=== PATIENT | male | born 1935 | race Caucasian/White ===

== ENCOUNTER 2016-08-27 20:59 | Inpatient (IN) | payer MEDICARE, OTHER ==
[2016-08-23 22:40] VITALS: O2SAT 96
[~2016-08-27] VITALS: Ht 177.8 cm; Wt 75.0 kg
[2016-08-27 21:18] VITALS: BP 176/74; PULSE 63; RESP 16; TEMP 98.2; O2SAT 100
[2016-08-27] MEDS ORDERED: SODIUM CHLORIDE 0.9% FLUSH 10 ML FLUSH IVF PRN (21:45)
--- NOTE | 2016-08-27 21:49 | RADRPT ---
EXAM DATE/TIME: 08/27/2016 21:33 [facility] COMPARISON: No previous studies available for comparison. INDICATIONS : Cough. MEDICAL HISTORY : None. SURGICAL HISTORY : None. ENCOUNTER: Initial ACUITY: 1 day PAIN SCORE: 0/10 LOCATION: Bilateral chest FINDINGS: The lungs are clear without infiltrate, nodule, or mass. There is no appreciable pleural effusion fo r technique. Heart and mediastinum are unremarkable. CONCLUSION: No acute cardiopulmonary disease. Mary Lake MD on August 27, 2016 at 21:47 Board Certified Radiologist. This report was verified electronically.
[2016-08-27 21:52] VITALS: BP 165/83; PULSE 61; RESP 16; O2SAT 100
[2016-08-27 22:03] LABS: AUTOMATED NEUTROPHIL # 6.6 TH/MM3 (1.8-7.7); BASOPHIL % 0.3 % (0.0-2.0); EOSINOPHIL # 0.1 TH/MM3 (0-0.4); HEMATOCRIT 33.7 % (39.0-51.0); HEMO FLAGS DIFF FINAL; MEAN CELL VOLUME 92.7 FL (80.0-100.0); MEAN CORPUSCULAR HEMOGLOBIN 31.1 PG (27.0-34.0); MEAN CORPUSCULAR HGB CONC 33.5 % (32.0-36.0); MONO % 4.4 % (0.0-8.0); NEUT % 82.3 % (16.0-70.0); PLATELET COUNT 216 TH/MM3 (150-450); RED BLOOD COUNT 3.63 MIL/MM3 (4.50-5.90); RED CELL DISTRIBUTION WIDTH 14.2 % (11.6-17.2)
[2016-08-27] MEDS ORDERED: ATOR10TA15 PO (22:04)
[2016-08-27] MEDS ORDERED: VITATAB11 PO (22:04)
[2016-08-27] MEDS ORDERED: NAME5TAB2 PO (22:04)
[2016-08-27] MEDS ORDERED: METF500T PO (22:04)
[2016-08-27] MEDS ORDERED: AMAN100C18 PO (22:04)
[2016-08-27] MEDS ORDERED: CITA10TA4 PO (22:04)
[2016-08-27] MEDS ORDERED: CHOL1CHW5 CHEW (22:04)
[2016-08-27] MEDS ORDERED: ARIC10TA PO (22:04)
[2016-08-27] MEDS ORDERED: DIOV160T6 PO (22:04)
[2016-08-27] MEDS ORDERED: KETOC2%T TOPICAL (22:04)
[2016-08-27] MEDS ORDERED: SERO25TA PO (22:04)
[2016-08-27] MEDS ORDERED: PLAV75TA29 PO (22:04)
[2016-08-27] MEDS ORDERED: SINE25TA PO (22:04)
[2016-08-27 22:32] LABS: ANION GAP 7 MEQ/L (5-15); BICARBONATE 27.7 MEQ/L (21.0-32.0); BLOOD UREA NITROGEN 28 MG/DL (7-18); CHLORIDE 106 MEQ/L (98-107); GLOMERULAR FILTRATION RATE 66 ML/MIN (>89); SODIUM (NA) 141 MEQ/L (136-145)
--- NOTE | 2016-08-27 23:17 | PD ---
HPI Chief Complaint: Psychiatric Symptoms Time Seen by Provider: 21:22 Travel History International Travel<30 days: No Contact w/Intl Traveler<30days: No Traveled to known affect area: No History of Present Illness HPI The patient's 81 years old. He has a history of Parkinson's dementia. He has been increasingly agitated at his [facility]. Disorientation with the [place]. He has no medical complaint aside from left knee pain where there is a Band-Aid overlying a 2 cm healing wound. HPI at bedside is somewhat limited 2/2 AMS/dementia. No fever on record. PFSH Past Medical History Medical History: Unable to Obtain High Cholesterol: Yes (PAPER MAR) Cerebrovascular Accident: Yes (TIA) Diabetes: Yes (FROM PAPER MAR) Patient Takes Glucophage: Yes (0900 08/27) Hypertension: Yes Parkinson's Disease: Yes Immunizations Current: Yes Sleep Apnea: Yes (USES CPAP<- PER PATIENT, NOTHING ON PAPER WORK) Tetanus Vaccination: Unknown Past Surgical History Surgical History: Unable to Obtain Social History Alcohol Use: No Tobacco Use: No Substance Use: No Allergies-Medications (Allergen,Severity, Reaction): Coded Allergies: No Known Allergies (Unverified , 08/27/16) Reported Meds & Prescriptions Reported Meds & Active Scripts Active Reported Sinemet (Carbidopa-Levodopa) 25-100 Mg Tab 1 Tab PO Q8HR Citalopram (Citalopram Hydrobromide) 10 Mg Tab 10 Mg PO DAILY Metformin (Metformin HCl) 500 Mg Tab 500 Mg PO BIDPC With meals Vitamin D3 (Cholecalciferol) 2,000 Unit Chew 2,000 Units CHEW DAILY Vitamin B Complex (B-Complex Vitamins) 1 Tab 1 Tab PO DAILY Seroquel (Quetiapine Fumarate) 25 Mg Tab 25 Mg PO DAILY Namenda (Memantine) 5 Mg Tab 5 Mg PO DAILY Plavix (Clopidogrel Bisulfate) 75 Mg Tab 75 Mg PO DAILY Nizoral Topical Shampoo (Ketoconazole) 2% Sham 1 Applic TOPICAL TUEFR Apply to scalp Diovan (Valsartan) 160 Mg Tab 160 Mg PO DAILY Atorvastatin (Atorvastatin Calcium) 10 Mg Tab 10 Mg PO HS Aricept (Donepezil) 10 Mg Tab 10 Mg PO HS Amantadine (Amantadine HCl) 100 Mg Cap 100 Mg PO DAILY Review of Systems ROS Limitations: Altered Mental Status Physical Exam Narrative GENERAL: 81 yo M, NAD, AOx1 SKIN: Warm and dry. HEAD: Atraumatic. Normocephalic. EYES: Pupils equal and round. No scleral icterus. No injection or drainage. ENT: No nasal bleeding or discharge. Mucous membranes pink and moist. NECK: Trachea midline. No JVD. CARDIOVASCULAR: Regular rate and rhythm. RESPIRATORY: No accessory muscle use. Clear to auscultation. Breath sounds equal bilaterally. GASTROINTESTINAL: Abdomen soft, non-tender, nondistended. Hepatic and splenic margins not palpable. MUSCULOSKELETAL: Extremities without clubbing, cyanosis, or edema. No obvious deformities. NEUROLOGICAL: Moving all extremities. CN normal. Speech normal. AOx1. PSYCHIATRIC: No apparent AH/VH. Data Data Last Documented VS Vital Signs Date Time Temp Pulse Resp B/P Pulse Ox O2 Delivery O2 Flow Rate FiO2 08/27/16 21:52 61 16 165/83 100 Room Air 08/27/16 21:18 98.2 VS reviewed Orders Basic Metabolic Panel (Bmp) (08/27/16 21:31) Complete Blood Count With Diff (08/27/16 21:31) Thyroid Stimulating Hormone (08/27/16 21:31) Urinalysis - C+S If Indicated (08/27/16 21:31) Chest, Single Ap (08/27/16 21:31) Blood Glucose (08/27/16 21:31) Ecg Monitoring (08/27/16 21:31) Iv Access Insert/Monitor (08/27/16 21:31) Oximetry (08/27/16 21:31) Sodium Chloride 0.9% Flush (Ns Flush) (08/27/16 21:45) Drug Screen, Random Urine (08/27/16 21:31) Alcohol (Ethanol) (08/27/16 21:31) Potassium, Serum (K) (08/27/16 23:40) Sodium Polysty Sulfate Liq (Kayexalate L (08/27/16 23:45) Sodium Chlorid 0.9% 500 Ml Inj (Ns 500 M (08/28/16 00:00) Escitalopram (Lexapro) (08/28/16 00:30) Carbidopa-Levodopa 25-100 Mg (Sinemet 25 (08/28/16 00:30) Citalopram (Celexa) (08/28/16 00:30) Lorazepam Inj (Ativan Inj) (08/28/16 00:45) Labs Laboratory Tests Test 08/27/16 08/27/16 08/27/16 21:48 23:13 23:54 White Blood Count 8.0 TH/MM3 Red Blood Count 3.63 MIL/MM3 Hemoglobin 11.3 GM/DL Hematocrit 33.7 % Mean Corpuscular Volume 92.7 FL Mean Corpuscular Hemoglobin 31.1 PG Mean Corpuscular Hemoglobin 33.5 % Concent Red Cell Distribution Width 14.2 % Platelet Count 216 TH/MM3 Mean Platelet Volume 8.4 FL Neutrophils (%) (Auto) 82.3 % Lymphocytes (%) (Auto) 12.0 % Monocytes (%) (Auto) 4.4 % Eosinophils (%) (Auto) 1.0 % Basophils (%) (Auto) 0.3 % Neutrophils # (Auto) 6.6 TH/MM3 Lymphocytes # (Auto) 1.0 TH/MM3 Monocytes # (Auto) 0.3 TH/MM3 Eosinophils # (Auto) 0.1 TH/MM3 Basophils # (Auto) 0.0 TH/MM3 CBC Comment DIFF FINAL Differential Comment Sodium Level 141 MEQ/L Potassium Level 6.0 MEQ/L 4.0 MEQ/L Chloride Level 106 MEQ/L Carbon Dioxide Level 27.7 MEQ/L Anion Gap 7 MEQ/L Blood Urea Nitrogen 28 MG/DL Creatinine 1.08 MG/DL Estimat Glomerular Filtration 66 ML/MIN Rate Random Glucose 95 MG/DL Calcium Level 8.8 MG/DL Thyroid Stimulating Hormone 1.270 uIU/ML 3rd Gen Ethyl Alcohol Level LESS THAN 3 MG/DL Urine Color YELLOW Urine Turbidity CLEAR Urine pH 6.0 Urine Specific [place] 1.024 Urine Protein TRACE mg/dL Urine Glucose (UA) NEG mg/dL Urine Ketones 10 mg/dL Urine Occult Blood NEG Urine Nitrite NEG Urine Bilirubin NEG Urine Urobilinogen 4.0 MG/DL Urine Leukocyte Esterase NEG Urine RBC 1 /hpf Urine WBC 1 /hpf Urine Squamous Epithelial <1 /hpf Cells Urine Mucus FEW /lpf Microscopic Urinalysis Comment CATH-CULT NOT IND Urine Opiates Screen NEG Urine Barbiturates Screen NEG Urine Amphetamines Screen NEG Urine Benzodiazepines Screen NEG Urine Cocaine Screen NEG Urine Cannabinoids Screen NEG MDM Medical Decision Making Medical Screen Exam Complete: Yes Emergency Medical Condition: Yes Medical Record Reviewed: Yes Differential Diagnosis Altered mental status/psychosis due to infection/environmental exposure/ metabolic abnormality, polypharmacy, alcohol abuse/intoxication, illicit or prescribed drug abuse, malingering/secondary gain, non-organic psychiatric disease Narrative Course CBC & BMP Diagram 08/27/16 21:48 08/27/16 23:54 U drug: edwards-negative UA: negative EtOH < 3 The history of present illness, ROS, physical exam, review of records and medical workup performed for today's visit have reasonably safely excluded organic etiologies for the patient's presenting complaint. We will continue to monitor the patient carefully in the ER until time of evaluation by the psychiatry service. We are available for any additional medical assistance if needed during the patient's ER course. Disposition per discretion of psychiatry is appreciated. Diagnosis Primary Impression: Agitation Momo Fox MD Aug 27, 2016 23:17
[2016-08-27 23:30] LABS: BLOOD, URINE NEG (NEG); COMMENT (UR) CATH-CULT NOT IND; CULTURE IF INDICATED CATH CULTURE NOT IND; GLUCOSE,URINE NEG (NEG); KETONE, URINE 10 mg/dL (NEG); MUCUS URINE FEW /lpf (OCC); NITRITE,URINE NEG (NEG); SQUAMOUS EPITHELIAL CELL URINE <1 /hpf (0-5); URINE COLOR YELLOW (YELLW/STRAW)
[2016-08-27 23:36] LABS: AMPHETAMINE, URINE NEG (NEG); BARBITURATES, URINE NEG (NEG); COCAINE, URINE NEG (NEG)
[2016-08-27] MEDS ORDERED: SODIUM POLYSTYRENE SULFONATE SUSP 15 GM/60 ML CUP PO ONE (23:45)
[2016-08-28] MEDS ORDERED: SODIUM CHLORID 0.9% 500 ML INJ 500 ML IV ONE
[2016-08-28] MEDS ORDERED: ESCITALOPRAM OXALATE 10 MG TAB PO ONE (00:30)
[2016-08-28] MEDS ORDERED: CITALOPRAM HYDROBROMIDE 20 MG TAB PO ONE (00:30)
[2016-08-28] MEDS: CARBIDOPA/LEVODOPA 25 MG/100 MG TAB PO SCH ×3 (00:37→21:31)
[2016-08-28] MEDS ORDERED: LORazepam 2 MG/ML VIAL IV PUSH ONE (00:45)
[2016-08-28 01:25] VITALS: BP 161/74; PULSE 60; RESP 16; O2SAT 100
[2016-08-28 04:43] VITALS: BP 148/81; PULSE 72; RESP 16; O2SAT 100
[2016-08-28] MEDS ORDERED: ALUMINUM/MAGNESIUM/SIMETH 30 ML CUP PO PRN (11:00)
[2016-08-28] MEDS ORDERED: LORazepam 1 MG TAB PO PRN (11:00)
[2016-08-28] MEDS ORDERED: LORazepam 2 MG/ML VIAL IM PRN ×2 (11:00)
[2016-08-28] MEDS ORDERED: LORazepam 0.5 MG TAB PO PRN (11:00)
[2016-08-28] MEDS ORDERED: ACETAMINOPHEN 325 MG TAB PO PRN (11:00)
[2016-08-28] MEDS ORDERED: MAGNESIUM HYDROXIDE SUSP 30 ML CUP PO PRN (11:00)
[2016-08-28] MEDS ORDERED: traZODone HCL 50 MG TAB PO PRN (11:00)
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
[2016-08-28] MEDS: VALSARTAN 160 MG TAB PO SCH (12:00)
[2016-08-28 12:33] VITALS: BP 150/73; PULSE 63; RESP 16; TEMP 97.1; O2SAT 94
[2016-08-28] MEDS: CLOPIDOGREL 75 MG TAB PO SCH (15:00)
[2016-08-28] MEDS: metFORMIN HCL 500 MG TAB PO SCH (18:00)
[2016-08-28 18:36] VITALS: BP 164/79; PULSE 80; RESP 17; TEMP 98.4; O2SAT 96
[2016-08-28] MEDS ORDERED: ATORVASTATIN 10 MG TAB PO SCH (21:00)
[2016-08-29] MEDS: CARBIDOPA/LEVODOPA 25 MG/100 MG TAB PO SCH ×2 (00:30→05:55)
[2016-08-29 06:17] VITALS: BP 165/88; PULSE 75; RESP 16; TEMP 97.9; O2SAT 95
[2016-08-29] MEDS: VALSARTAN 160 MG TAB PO SCH (08:52)
[2016-08-29] MEDS: VITAMIN B COMPLEX/VIT C TAB PO SCH (08:53)
[2016-08-29] MEDS: CLOPIDOGREL 75 MG TAB PO SCH (08:53)
[2016-08-29] MEDS: CHOLECALCIFEROL (VIT D3) 1000 UNIT TAB PO SCH (08:53)
[2016-08-29] MEDS: metFORMIN HCL 500 MG TAB PO SCH ×2 (08:53→18:00)
[2016-08-29] MEDS: NICOTINE 21 MG/24 HR PATCH T-DERMAL SCH (09:00)
[2016-08-29] MEDS ORDERED: MEMANTINE HCL 5 MG TAB PO SCH (09:00)
[2016-08-29 09:30] LABS: AUTOMATED NEUTROPHIL # 7.5 TH/MM3 (1.8-7.7); BASOPHIL % 0.2 % (0.0-2.0); EOSINOPHIL # 0.1 TH/MM3 (0-0.4); EOSINOPHIL % 1.2 % (0.0-4.0); HEMATOCRIT 36.4 % (39.0-51.0); HEMO FLAGS DIFF FINAL; LYMPH % 6.9 % (9.0-44.0); LYMPHOCYTE # 0.6 TH/MM3 (1.0-4.8); MEAN CELL VOLUME 93.1 FL (80.0-100.0); MEAN CORPUSCULAR HEMOGLOBIN 30.8 PG (27.0-34.0); MONO % 3.7 % (0.0-8.0); PLATELET COUNT 211 TH/MM3 (150-450); RED BLOOD COUNT 3.91 MIL/MM3 (4.50-5.90); RED CELL DISTRIBUTION WIDTH 14.1 % (11.6-17.2); WHITE BLOOD COUNT 8.5 TH/MM3 (4.0-11.0)
[2016-08-29 10:45] LABS: ALKALINE PHOSPHATASE 70 U/L (45-117); ALT (GPT) 12 U/L (12-78); ANION GAP 8 MEQ/L (5-15); AST (GOT) 30 U/L (15-37); BLOOD UREA NITROGEN 13 MG/DL (7-18); CHLORIDE 105 MEQ/L (98-107); GLOMERULAR FILTRATION RATE 97 ML/MIN (>89); HDL CHOLESTEROL 81.2 MG/DL (40.0-60.0); LDL CHOLESTEROL 58 MG/DL (0-99); POTASSIUM 3.9 MEQ/L (3.5-5.1); SODIUM (NA) 142 MEQ/L (136-145); TOTAL BILIRUBIN ADULT 1.4 MG/DL (0.2-1.0)
[2016-08-29 11:30] VITALS: BP 146/67; PULSE 8; RESP 1; TEMP 99.1
--- NOTE | 2016-08-29 11:40 | HHI.PYPN ---
Subjective Remarks This is a request for second opinion. Patient was seen, admission note reviewed. Patient is here for psychosis and disorganized thinking. Today he is alert and oriented 1. Largely nonsensical when answering other questions. He is diagnosed with Parkinson's dementia and is having episodes of generalized jerking that last for 3-5 seconds. He is conscious during these events. Per nursing he was seen by neurology today with no medication changes. Objective Alert: Yes [place]: Person Mood: Anxious Affect: Blunted Memory Intact: Immediate (impaired) Hallucinations: Other (denies) Delusions: No Delusion Type: Paranoid Suicidal: Ideation (denies) Homicidal: Ideation (denies) Insight/Judgment Poor Labs Test 08/29/16 08:18 White Blood Count 8.5 TH/MM3 Red Blood Count 3.91 MIL/MM3 Hemoglobin 12.0 GM/DL Hematocrit 36.4 % Mean Corpuscular Volume 93.1 FL Mean Corpuscular Hemoglobin 30.8 PG Mean Corpuscular Hemoglobin 33.0 % Concent Red Cell Distribution Width 14.1 % Platelet Count 211 TH/MM3 Mean Platelet Volume 8.0 FL Neutrophils (%) (Auto) 88.0 % Lymphocytes (%) (Auto) 6.9 % Monocytes (%) (Auto) 3.7 % Eosinophils (%) (Auto) 1.2 % Basophils (%) (Auto) 0.2 % Neutrophils # (Auto) 7.5 TH/MM3 Lymphocytes # (Auto) 0.6 TH/MM3 Monocytes # (Auto) 0.3 TH/MM3 Eosinophils # (Auto) 0.1 TH/MM3 Basophils # (Auto) 0.0 TH/MM3 CBC Comment DIFF FINAL Differential Comment Sodium Level 142 MEQ/L Potassium Level 3.9 MEQ/L Chloride Level 105 MEQ/L Carbon Dioxide Level 29.0 MEQ/L Anion Gap 8 MEQ/L Blood Urea Nitrogen 13 MG/DL Creatinine 0.77 MG/DL Estimat Glomerular Filtration 97 ML/MIN Rate Random Glucose 111 MG/DL Calcium Level 9.0 MG/DL Total Bilirubin 1.4 MG/DL Aspartate Amino Transf 30 U/L (AST/SGOT) Alanine Aminotransferase 12 U/L (ALT/SGPT) Alkaline Phosphatase 70 U/L Total Protein 7.0 GM/DL Albumin 3.7 GM/DL Triglycerides Level 56 MG/DL Cholesterol Level 150 MG/DL LDL Cholesterol 58 MG/DL HDL Cholesterol 81.2 MG/DL Cholesterol/HDL Ratio 1.84 RATIO Vitamin B12 Level 570 PG/ML 25-Hydroxy Vitamin D Total 25.5 ng/ML Thyroid Stimulating Hormone 0.846 uIU/ML 3rd Gen Vitals/IOs Vital Signs Date Time Temp Pulse Resp B/P Pulse Ox O2 Delivery O2 Flow Rate FiO2 08/29/16 06:17 97.9 75 16 165/88 95 08/28/16 07:30 Room Air Assessment & Plan Problem List: (1) 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 Neurologist will be called now for further input. I agree with second opinion to continue petition. Criteria include psychosis and disorganized behavior Justification for Cont. Inpt. Patient will decompensate in a less restrictive setting Derek Alcaraz DO Aug 29, 2016 11:40
[2016-08-29] MEDS ORDERED: LORazepam 2 MG/ML VIAL IM ONE (12:30)
--- NOTE | 2016-08-29 12:30 | MB ---
cc: ZAYDA FLORES M.D. DATE OF CONSULTATION: 08/29/2016 REASON FOR CONSULTATION: Neurological consultation He is an 81-year-old being evaluated for confusion, agitation and Parkinson's / dementia. The patient was admitted 2 days ago. He was brought to the hospital because of aggressive behavior, disorientation and he lives in the nursing facility. There is apparent diagnosis of Parkinson's dementia. MEDICATIONS His medications were reported to be a 1. Sinemet 25 - 100 every 8 hours. 2. Citalopram 3. Metformin. 4. Vitamins 5. Seroquel 25 mg a day. 6. Namenda 5 mg a day. 7. Plavix. 8. Diovan. 9. Atorvastatin 10. donepezil 10 mg a day 11. amantadine 100 mg a day. REVIEW OF SYSTEMS There is indication that there has been some hallucinations aggressiveness and he was brought to the hospital. I do not have information on his outpatient neurologist. The patient admits a stroke in the past but unable to give me details. He is unable to provide much information. PHYSICAL EXAMINATION: The exam shows the patient to be awake reasonably alert and he was pleasant, cooperative, partially oriented. He knows his name and answered 72 instead of 81 the year. He seemed to have some insight that he is in the health related facility and seems to know he lives in a senior living but could not provide the name. There is an ability to follow simple commands but the more complex commands and even touching nose with his finger, was poorly followed and probably poorly comprehended. He is moving all four extremities. He was able to count fingers in both right and left visual valiente. His eyes are questionably is slightly disconjugate but the pupils were about same time same size and reactive. He did gaze in all directions. I thought the right eye was slightly deviated out word and when questioned and he admits double vision, but this is really difficult to be ascertained. There is very mild trembling and mild cleve kinesias. He is unable to walk, has been in the wheelchair. He wiggles toes and moves the lower extremities with mild to moderate increase in tone throughout. Reflexes present, 1+, but trace at the ankles and plantar responses equivocal. ANCILLARY DATA: WBC 8.0, hemoglobin 11.3, platelets 216. Sodium 141, potassium 76.0 and this is from admission, and a repeat potassium 4.0, BUN 28, creatinine 1.018. TSH 1.27. Urinalysis negative. Urine toxicology negative. ASSESSMENT Parkinson's dementia. Recent increase in confusion, and hallucinations and apparent aggressive behavior. CURRENT MEDICATIONS Seen including the 1. Sinemet 25/100 three times a day, the usual. 2. Namenda 5 mg once a day. 3. Lorazepam p.r.n. 4. Trazodone. 5. Also on Plavix 6. Diovan 7. Glucophage. ASSESSMENT AND PLAN: Neurologic aranda, I am going to obtain a CT brain, to be sure there is no acute neurologic intracranial event. Otherwise, would continue on Namenda, Donepezil, Azo, and the Sinemet. Monitor neuro psychiatric course. Thank you for asking us to assist in his care. MD SHARITA Dalton/ /9:58 AM /11:27 AM
--- NOTE | 2016-08-29 14:30 | RADRPT ---
EXAM DATE/TIME: 08/29/2016 13:31 [facility] COMPARISON: No previous studies available for comparison. INDICATIONS : Altered mental status. RADIATION DOSE: 69.17 CTDIvol (mGy) MEDICAL HISTORY : Stroke. Parkinsons. Hypertension. SURGICAL HISTORY : None. ENCOUNTER: Initial ACUITY: 1 day PAIN SCALE: Non-responsive LOCATION: Bilateral head TECHNIQUE: Multiple contiguous axial images were obtained of the head. Using automated exposure control and adj ustment of the mA and/or kV according to patient size, radiation dose was kept as low as reasonably a chievable to obtain optimal diagnostic quality images. FINDINGS: CEREBRUM: The ventricles are very prominently widened. There is moderate sulcal widening. There is decreased de nsity throughout the periventricular white matter. There is an old lacunar infarct at the left caudat e and internal capsule region. No evidence of midline shift, mass lesion, hemorrhage or acute infar ction. No extra-axial fluid collections are seen. POSTERIOR FOSSA: The cerebellum and brainstem are intact. The 4th ventricle is midline. The cerebellopontine angle i s unremarkable. EXTRACRANIAL: The visualized portion of the orbits is intact. SKULL: The calvaria is intact. No evidence of skull fracture. 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 The ventricles do appear somewhat dil ated out of proportion to the sulcal widening which can suggest normal pressure hydrocephalus. Evan Nascimento MD on August 29, 2016 at 14:26 Board Certified Radiologist. This report was verified electronically.
[2016-08-29 16:43] LABS: INDIRECT BILIRUBIN 1.2 MG/DL (0.0-0.8); TOTAL BILIRUBIN ADULT 1.4 MG/DL (0.2-1.0)
[2016-08-29] MEDS ORDERED: DEXTROSE 50% IN WATER 50 ML VIAL(D50) IV PUSH PRN (17:45)
[2016-08-29] MEDS ORDERED: GLUCAGON 1 MG/ML VIAL OTHER PRN (17:45)
--- NOTE | 2016-08-29 17:49 | PD.CONS ---
HPI Service [facility] Hospitalists Consult Requested By Psychiatric service Reason for Consult Medical management Primary Care Physician Unknown Diagnoses: History of Present Illness This is a 81-year-old patient with a past medical history significant for Parkinson's dementia who was brought into the hospital as a result of becoming increasingly agitated at his USP who was Alexander acted by his psychologist for associated aggressiveness and psychosis. Per review of the medical record, patient has developed delusional thinking and visual hallucinations. He is also following multiple times in the past month. Patient has developed some involuntary jerking. Hospitalist services were consulted for medical management. Patient seen and examined today. The time of our examination, patient briefly responsive to sternal rub only after being given 2 mg of Ativan earlier today. He is unable to provide any information and therefore his history is obtained from review of the medical record. Patient's been evaluated by neurology who has recommended CT of the brain and holding all of his medications. Review of Systems Unable to complete 10 system review due to patient's cognitive impairment Past Family Social History Allergies: Coded Allergies: No Known Allergies (Unverified , 08/27/16) Past Medical History Parkinson's dementia History TIA Diabetes mellitus Hypertension Sleep apnea Dyslipidemia Past Surgical History Unable to obtain due to patient's cognitive impairment Reported Medications Sinemet (Carbidopa-Levodopa) 25-100 Mg Tab 1 Tab PO Q8HR Citalopram (Citalopram Hydrobromide) 10 Mg Tab 10 Mg PO DAILY Metformin (Metformin HCl) 500 Mg Tab 500 Mg PO BIDPC With meals Vitamin D3 (Cholecalciferol) 2,000 Unit Chew 2,000 Units CHEW DAILY Vitamin B Complex (B-Complex Vitamins) 1 Tab 1 Tab PO DAILY Seroquel (Quetiapine Fumarate) 25 Mg Tab 25 Mg PO DAILY Namenda (Memantine) 5 Mg Tab 5 Mg PO DAILY Plavix (Clopidogrel Bisulfate) 75 Mg Tab 75 Mg PO DAILY Nizoral Topical Shampoo (Ketoconazole) 2% Sham 1 Applic TOPICAL TUEFR Apply to scalp Diovan (Valsartan) 160 Mg Tab 160 Mg PO DAILY Atorvastatin (Atorvastatin Calcium) 10 Mg Tab 10 Mg PO HS Aricept (Donepezil) 10 Mg Tab 10 Mg PO HS Amantadine (Amantadine HCl) 100 Mg Cap 100 Mg PO DAILY Active Ordered Medications Current Medications Medications (Trade) Dose Ordered Sig/Kristyn Route Start Time Stop Time Status Last Admin (NS Flush) 2 ml UNSCH PRN IVF 08/27/16 21:45 (Sinemet 25-100 Mg) 1 tab ONCE PO 08/28/16 00:30 Hold 08/29/16 00:30 (Ativan) 1 mg Q6H PRN PO 08/28/16 11:00 (Ativan Inj) 1 mg Q6H PRN IM 08/28/16 11:00 (Ativan) 0.5 mg Q12H PRN PO 08/28/16 11:00 (Ativan Inj) 0.5 mg Q12H PRN IM 08/28/16 11:00 (Tylenol) 650 mg Q4H PRN PO 08/28/16 11:00 (Milk Of Magnesia Liq) 30 ml DAILY PRN PO 08/28/16 11:00 (Mag-Al Plus Susp Liq) 30 ml Q6H PRN PO 08/28/16 11:00 (Habitrol 21 Mg Patch.24 Hr) 1 patch DAILY T-DERMAL 08/29/16 09:00 (Desyrel) 50 mg HS PRN PO 08/28/16 11:00 (Lipitor) 10 mg HS PO 08/28/16 21:00 08/28/16 21:31 (Sinemet 25-100 Mg) 1 tab Q8HR PO 08/28/16 14:00 Hold 08/29/16 05:55 (Plavix) 75 mg DAILY PO 08/28/16 12:00 08/29/16 08:53 (Namenda) 5 mg DAILY PO 08/29/16 09:00 Hold 08/29/16 08:53 (Glucophage) 500 mg BIDPC PO 08/28/16 18:00 08/29/16 08:53 (Diovan) 160 mg DAILY PO 08/28/16 12:00 08/29/16 08:52 (Allbee C) 1 tab DAILY PO 08/29/16 09:00 08/29/16 08:53 (Vitamin D3) 2,000 units DAILY PO 08/29/16 09:00 08/29/16 08:53 Family History Unable to obtain due to patient's cognitive impairment Social History Per ED note, patient does not use tobacco alcohol or illicit drugs. Physical Exam Vital Signs Vital Signs Date Time Temp Pulse Resp B/P Pulse Ox O2 Delivery O2 Flow Rate FiO2 08/29/16 11:30 99.1 8 1 146/67 08/29/16 06:17 97.9 75 16 165/88 95 08/28/16 18:36 98.4 80 17 164/79 96 Physical Exam GENERAL: This is a well-developed well-nourished elderly male. Observed to have intermittent involuntary jerking movements. Briefly responsive to sternal rub. SKIN: . Abrasions noted on both anterior knees. Cool and dry. HEAD: Atraumatic. Normocephalic. EYES: Pupils equal round and reactive. ENT: Nose without bleeding, purulent drainage or septal hematoma. Throat without erythema, tonsillar hypertrophy or exudate. Uvula midline. Airway patent. NECK: Trachea midline. No lymphadenopathy. Supple, nontender, no meningeal signs. CARDIOVASCULAR: Regular rate and rhythm without murmurs, gallops, or rubs. RESPIRATORY: Clear to auscultation. Breath sounds equal bilaterally. No wheezes , rales, or rhonchi. GASTROINTESTINAL: Abdomen soft, non-tender, nondistended. No hepato-splenomegaly , or palpable masses. No guarding. MUSCULOSKELETAL: Extremities without clubbing, cyanosis, or edema. No joint tenderness, effusion, or edema noted. No calf tenderness. NEUROLOGICAL: Sedated. Able to move all 4 extremities. Laboratory Laboratory Tests Test 08/29/16 08:18 White Blood Count 8.5 Red Blood Count 3.91 Hemoglobin 12.0 Hematocrit 36.4 Mean Corpuscular Volume 93.1 Mean Corpuscular Hemoglobin 30.8 Mean Corpuscular Hemoglobin 33.0 Concent Red Cell Distribution Width 14.1 Platelet Count 211 Mean Platelet Volume 8.0 Neutrophils (%) (Auto) 88.0 Lymphocytes (%) (Auto) 6.9 Monocytes (%) (Auto) 3.7 Eosinophils (%) (Auto) 1.2 Basophils (%) (Auto) 0.2 Neutrophils # (Auto) 7.5 Lymphocytes # (Auto) 0.6 Monocytes # (Auto) 0.3 Eosinophils # (Auto) 0.1 Basophils # (Auto) 0.0 CBC Comment DIFF FINAL Differential Comment Sodium Level 142 Potassium Level 3.9 Chloride Level 105 Carbon Dioxide Level 29.0 Anion Gap 8 Blood Urea Nitrogen 13 Creatinine 0.77 Estimat Glomerular Filtration 97 Rate Random Glucose 111 Calcium Level 9.0 Total Bilirubin 1.4 Direct Bilirubin 0.2 Indirect Bilirubin 1.2 Aspartate Amino Transf 30 (AST/SGOT) Alanine Aminotransferase 12 (ALT/SGPT) Alkaline Phosphatase 70 Total Protein 7.0 Albumin 3.7 Triglycerides Level 56 Cholesterol Level 150 LDL Cholesterol 58 HDL Cholesterol 81.2 Cholesterol/HDL Ratio 1.84 Vitamin B12 Level 570 25-Hydroxy Vitamin D Total 25.5 Thyroid Stimulating Hormone 0.846 3rd Gen Result Diagram: 08/29/1618 08/29/16 0818 Imaging Last [address] 08/29/16 0000 Signed Impressions: Service Date/Time: Monday, August 29, 2016 13:31 - CONCLUSION: Dilatation of the ventricles likely secondary to hydrocephalus. The ventricles do appear somewhat dilated out of proportion to the sulcal widening which can suggest normal pressure hydrocephalus. Evan Nascimento MD Chest X-Ray 08/27/162130 Signed Impressions: Service Date/Time: August 21:33 - CONCLUSION: No acute cardiopulmonary disease. Mary Lake MD Assessment and Plan Assessment and Plan 81-year-old patient with a past medical history significant for Parkinson's dementia who was brought into the hospital as a result of becoming increasingly agitated at his USP who was Alexander acted by his psychologist for associated aggressiveness and psychosis. Per review of the medical record, patient has developed delusional thinking and visual hallucinations. He is also following multiple times in the past month. Patient has developed some involuntary jerking. Hospitalist services were consulted for medical management. //Dementia with behavioral disturbance Management per psychiatric team //Myoclonic jerking Possibly due to Parkinson's/Lewy body dementia Neurology following - per their note, continue on Namenda, Donepezil, Azo and Sinemet CT of the head shows dilatation of the ventricles likely secondary to hydrocephalus, possibly due to normal pressure hydrocephalus. 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 Barrera on 08/29/16 at 14:24. This note was transcribed by scribe [Swetha Boucher PA-C]. I, Dr. Ian Barrera personally performed the history, physical exam, and medical decision making; and confirmed the accuracy of the information in the transcribed note. Authenticated by Dr. Ian Barrera on 08/29/16 at 23:57. Discussed Condition With Nursing staff Swetha Boucher Aug 29, 2016 17:49 Ian Barrera MD Aug 29, 2016 23:58
--- NOTE | 2016-08-29 19:16 | MG ---
cc: ZAYDA GARCIA M.D. Lab No: Date: 08/29/2016 Age: 81 Sex: M Race: REQUESTING: HISTORY: An EEG was obtained on this 81-year-old patient being evaluated for agitation, behavior change and jerking movement disorder. DESCRIPTION OF THE RECORD: The EEG is showing a mixture of low amplitude beta rhythms with some low to mid amplitude theta and also some delta activity. The legs are jerking and shaking intermittently, sometimes in a repetitive manner and there is muscle artifact but there are no paroxysmal or epileptiform discharges. This behavior is intermittently and at times more prominent. At times there is mild twitching and arm jerking and again the EEG background is basically unchanged. The patient is snoring and photic stimulation disclosed no change. INTERPRETATION: Abnormal EEG because of generalized slowing suggesting a moderately severe diffuse disturbance of cerebral function. No epileptiform features present. Frequent body jerking activity shows artifact and no paroxysmal discharges. Zayda Garcia MD [facility] /6:06 PM /7:03 PM
[2016-08-29 19:31] LABS: BLOOD, URINE NEG (NEG); COMMENT (UR) CATH-CULT NOT IND; CULTURE IF INDICATED CATH CULTURE NOT IND; GLUCOSE,URINE NEG (NEG); KETONE, URINE 10 mg/dL (NEG); MUCUS URINE FEW /lpf (OCC); NITRITE,URINE NEG (NEG); PH, URINE 7.5 (5.0-8.5); SQUAMOUS EPITHELIAL CELL URINE <1 /hpf (0-5); URINE COLOR YELLOW (YELLW/STRAW)
[2016-08-29] MEDS: INSULIN ASPART SUPPLEMENTAL SCALE SQ SCH (21:00)
[2016-08-29 21:06] LABS: THYROXINE (T4) 10.7 MCG/DL (4.5-12.1)
[2016-08-30 04:00] VITALS: BP 195/86; PULSE 72; RESP 20; TEMP 98.4; O2SAT 95
[2016-08-30] MEDS ORDERED: ENALAPRILAT 2.5 MG/2 ML VIAL IV PUSH ONE (04:30)
[2016-08-30] MEDS: INSULIN ASPART SUPPLEMENTAL SCALE SQ SCH ×4 (06:03→20:33)
--- NOTE | 2016-08-30 08:41 | HHI.PR ---
Review/Management Daily Summary 08/30 he is responding tostim, follows commands, moves limbs on request lower lip injuty mild myoclonus noted today eeg seen ct seen met encep with myoclonus avoid all backshoe person meds, agrressive hydration, nutrition and comfort/supportive care consider NPH eval/tx later on Subjective Subjective Comments per RN much improved mov dx Active Medications Current Medications Medications (Trade) Dose Ordered Sig/Kristyn Route Start Time Stop Time Status Last Admin (NS Flush) 2 ml UNSCH PRN IVF 08/27/16 21:45 (Sinemet 25-100 Mg) 1 tab ONCE PO 08/28/16 00:30 Hold 08/29/16 00:30 (Ativan) 1 mg Q6H PRN PO 08/28/16 11:00 (Ativan Inj) 1 mg Q6H PRN IM 08/28/16 11:00 08/29/16 19:32 (Ativan) 0.5 mg Q12H PRN PO 08/28/16 11:00 (Ativan Inj) 0.5 mg Q12H PRN IM 08/28/16 11:00 (Tylenol) 650 mg Q4H PRN PO 08/28/16 11:00 (Milk Of Magnesia Liq) 30 ml DAILY PRN PO 08/28/16 11:00 (Mag-Al Plus Susp Liq) 30 ml Q6H PRN PO 08/28/16 11:00 (Habitrol 21 Mg Patch.24 Hr) 1 patch DAILY T-DERMAL 08/29/16 09:00 (Desyrel) 50 mg HS PRN PO 08/28/16 11:00 (Lipitor) 10 mg HS PO 08/28/16 21:00 Hold 08/28/16 21:31 (Sinemet 25-100 Mg) 1 tab Q8HR PO 08/28/16 14:00 Hold 08/29/16 05:55 (Plavix) 75 mg DAILY PO 08/28/16 12:00 08/29/16 08:53 (Namenda) 5 mg DAILY PO 08/29/16 09:00 Hold 08/29/16 08:53 (Glucophage) 500 mg BIDPC PO 08/28/16 18:00 08/29/16 08:53 (Diovan) 160 mg DAILY PO 08/28/16 12:00 08/29/16 08:52 (Allbee C) 1 tab DAILY PO 08/29/16 09:00 08/29/16 08:53 (Vitamin D3) 2,000 units DAILY PO 08/29/16 09:00 08/29/16 08:53 (D50w (Vial) Inj) 25 ml UNSCH PRN IV PUSH 08/29/16 17:45 (Glucagon Inj) 1 mg UNSCH PRN OTHER 08/29/16 17:45 Allergies Allergies Coded Allergies No Known Allergies (Unverified08/27/16) Exam I&O / VS 08/29/16 08/29/16 08/30/16 15:00 23:00 07:00 Intake Total 480 ml Balance 480 ml Intake Oral 480 ml Vital Signs Date Time Temp Pulse Resp B/P Pulse Ox O2 Delivery O2 Flow Rate FiO2 08/30/16 04:00 98.4 72 20 195/86 95 08/29/16 11:30 99.1 8 1 146/67 Objective Radiology Results Last [address] 08/29/16 0000 Signed Impressions: Service Date/Time: Monday, August 29, 2016 13:31 - CONCLUSION: Dilatation of the ventricles likely secondary to hydrocephalus. The ventricles do appear somewhat dilated out of proportion to the sulcal widening which can suggest normal pressure hydrocephalus. Evan Nascimento MD Micro and Labs Laboratory Tests Test 08/29/16 08/29/16 17:55 20:14 Urine Color YELLOW Urine Turbidity CLEAR Urine pH 7.5 Urine Specific [place] 1.014 Urine Protein NEG Urine Glucose (UA) NEG Urine Ketones 10 Urine Occult Blood NEG Urine Nitrite NEG Urine Bilirubin NEG Urine Urobilinogen 2.0 Urine Leukocyte Esterase NEG Urine RBC 2 Urine WBC 5 Urine Squamous Epithelial <1 Cells Urine Mucus FEW Microscopic Urinalysis Comment CATH-CULT NOT IND Ammonia 11 Thyroxine (T4) 10.7 Thyroid Stimulating Hormone 1.420 3rd Gen Maynor Garcia MD Aug 30, 2016 08:41
[2016-08-30 08:44] VITALS: BP 174/93; PULSE 63; RESP 16; TEMP 98.1; O2SAT 96
[2016-08-30] MEDS: NICOTINE 21 MG/24 HR PATCH T-DERMAL SCH (08:45)
[2016-08-30] MEDS: VITAMIN B COMPLEX/VIT C TAB PO SCH (09:00)
[2016-08-30] MEDS: VALSARTAN 160 MG TAB PO SCH (09:00)
[2016-08-30] MEDS: CHOLECALCIFEROL (VIT D3) 1000 UNIT TAB PO SCH (09:00)
[2016-08-30] MEDS: metFORMIN HCL 500 MG TAB PO SCH (09:00)
[2016-08-30] MEDS: CLOPIDOGREL 75 MG TAB PO SCH (09:00)
--- NOTE | 2016-08-30 09:59 | HHI.PR ---
Subjective Remarks Follow-up on patient with Parkinson's dementia, hypertension, diabetes and myoclonus. Patient seen and examined today. Patient's myoclonic jerking has improved significantly he still does some some mild symptoms. He is sedated after being given 1mg of Ativan last night. He is arousable and will answer some questions and follow commands. He has a new injury to his bottom lip with surrounding ecchymosis. He denies any complaints of pain. Denies any shortness of breath, chest pain or abdominal pain. Discussed with the nursing staff, CPAP machine was never brought up. Objective Vitals Vital Signs Date Time Temp Pulse Resp B/P Pulse Ox O2 Delivery O2 Flow Rate FiO2 08/30/16 08:44 98.1 63 16 174/93 96 08/30/16 04:00 98.4 72 20 195/86 95 08/29/16 11:30 99.1 8 1 146/67 I/O 08/29/16 08/29/16 08/29/16 08/30/16 08/30/16 08/30/16 07:00 15:00 23:00 07:00 15:00 23:00 Intake Total 100 ml 480 ml Balance 100 ml 480 ml Intake Oral 100 ml 480 ml # Voids 1 # Bowel Movements 0 Result Diagram: 08/29/1681708/29/16817 Objective Remarks GENERAL: This is a well-developed well-nourished elderly male. Sedated but arousable. Able to answer some questions. SKIN: . Abrasions noted on both anterior knees. Patient appears to bit his lower lip with evidence of bleeding and ecchymosis beneath the lower lip. Cool and dry. HEAD: Atraumatic. Normocephalic. CARDIOVASCULAR: Regular rate and rhythm without murmurs, gallops, or rubs. RESPIRATORY: Clear to auscultation. Breath sounds equal bilaterally. No wheezes , rales, or rhonchi. GASTROINTESTINAL: Abdomen soft, non-tender, nondistended. No hepato-splenomegaly , or palpable masses. No guarding. MUSCULOSKELETAL: Extremities without clubbing, cyanosis, or edema. No joint tenderness, effusion, or edema noted. No calf tenderness. NEUROLOGICAL: Sedated. Able to move all 4 extremities. Able to follow commands. Medications and IVs Current Medications Medications (Trade) Dose Ordered Sig/Kristyn Route Start Time Stop Time Status Last Admin (NS Flush) 2 ml UNSCH PRN IVF 08/27/16 21:45 (Sinemet 25-100 Mg) 1 tab ONCE PO 08/28/16 00:30 Hold 08/29/16 00:30 (Ativan) 1 mg Q6H PRN PO 08/28/16 11:00 (Ativan Inj) 1 mg Q6H PRN IM 08/28/16 11:00 08/29/16 19:32 (Ativan) 0.5 mg Q12H PRN PO 08/28/16 11:00 (Ativan Inj) 0.5 mg Q12H PRN IM 08/28/16 11:00 (Tylenol) 650 mg Q4H PRN PO 08/28/16 11:00 (Milk Of Magnesia Liq) 30 ml DAILY PRN PO 08/28/16 11:00 (Mag-Al Plus Susp Liq) 30 ml Q6H PRN PO 08/28/16 11:00 (Habitrol 21 Mg Patch.24 Hr) 1 patch DAILY T-DERMAL 08/29/16 09:00 (Desyrel) 50 mg HS PRN PO 08/28/16 11:00 (Lipitor) 10 mg HS PO 08/28/16 21:00 Hold 08/28/16 21:31 (Sinemet 25-100 Mg) 1 tab Q8HR PO 08/28/16 14:00 Hold 08/29/16 05:55 (Plavix) 75 mg DAILY PO 08/28/16 12:00 08/29/16 08:53 (Namenda) 5 mg DAILY PO 08/29/16 09:00 Hold 08/29/16 08:53 (Glucophage) 500 mg BIDPC PO 08/28/16 18:00 Hold 08/29/16 08:53 (Diovan) 160 mg DAILY PO 08/28/16 12:00 08/29/16 08:52 (Allbee C) 1 tab DAILY PO 08/29/16 09:00 08/29/16 08:53 (Vitamin D3) 2,000 units DAILY PO 08/29/16 09:00 08/29/16 08:53 (D50w (Vial) Inj) 25 ml UNSCH PRN IV PUSH 08/29/16 17:45 (Glucagon Inj) 1 mg UNSCH PRN OTHER 08/29/16 17:45 A/P Assessment and Plan 81-year-old patient with a past medical history significant for Parkinson's dementia who was brought into the hospital as a result of becoming increasingly agitated at his INTERMEDIATE who was Alexander acted by his psychologist for associated aggressiveness and psychosis. Per review of the medical record, patient has developed delusional thinking and visual hallucinations. He is also following multiple times in the past month. Patient has developed some involuntary jerking. Hospitalist services were consulted for medical management. 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 Will add CPAP in the event his jerking is related to REM sleep - Did not bring CPAP up yesterday. Clarified CPAP respiratory order - patient with h/o NUPUR using CPAP at home. 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 Barrera and patient Swetha Boucher Aug 30, 2016 09:59
[2016-08-30] MEDS: SODIUM CHLOR 0.9% 1000 ML INJ 1,000 ML IV SCH ×2 (10:00→22:31)
[2016-08-30] MEDS: ENOXAPARIN SODIUM 40 MG/0.4 ML SYRINGE SQ SCH (12:15)
[2016-08-30 12:18] VITALS: BP 179/85; PULSE 63
[2016-08-30 15:36] VITALS: O2SAT 94
[2016-08-30 18:00] VITALS: BP 150/91; PULSE 85; RESP 20
[2016-08-30 20:35] VITALS: O2SAT 95
[2016-08-31 01:40] VITALS: O2SAT 94
[2016-08-31 05:58] VITALS: BP 141/82; PULSE 92; RESP 17; TEMP 98.5; O2SAT 92
[2016-08-31] MEDS: INSULIN ASPART SUPPLEMENTAL SCALE SQ SCH ×4 (06:30→21:00)
[2016-08-31] MEDS: NICOTINE 21 MG/24 HR PATCH T-DERMAL SCH (09:00)
[2016-08-31] MEDS: VALSARTAN 160 MG TAB PO SCH (09:00)
[2016-08-31] MEDS: VITAMIN B COMPLEX/VIT C TAB PO SCH (09:56)
[2016-08-31] MEDS: CLOPIDOGREL 75 MG TAB PO SCH (09:56)
[2016-08-31] MEDS: CHOLECALCIFEROL (VIT D3) 1000 UNIT TAB PO SCH (09:59)
--- NOTE | 2016-08-31 10:44 | HHI.PR ---
Subjective Remarks Follow-up on patient with Parkinson's dementia, hypertension, diabetes and myoclonus. Patient arouses to voice, oriented to self. Patient's myoclonus improved significantly. Denies any pain. Denies any shortness of breath or chest pain. Patient's lips ecchymotic from prior biting, denies any discomfort or pain. Discussed with RN, does state that patient had difficulty swallowing with possibility of aspiration. Patient also tolerated the CPAP machine for most of the night. Spoke with case management, placement for [facility] [place] possibly for tomorrow if medically stable. Objective Vitals Vital Signs Date Time Temp Pulse Resp B/P Pulse Ox O2 Delivery O2 Flow Rate FiO2 08/31/16 05:58 98.5 92 17 141/82 92 08/31/16 01:40 94 21 08/30/16 20:35 95 21 08/30/16 18:00 85 20 150/91 08/30/16 15:36 94 21 08/30/16 12:18 63 179/85 I/O 08/30/16 08/30/16 08/30/16 08/31/16 08/31/16 08/31/16 07:00 15:00 23:00 07:00 15:00 23:00 Intake Total 0 ml 0 ml Balance 0 ml 0 ml Intake Oral 0 ml 0 ml # Voids 2 4 Result Diagram: 08/29/16 0818 08/29/16 0818 Imaging Last Impressions Head CT 08/29/16 0000 Signed Impressions: Service Date/Time: Monday, August 29, 2016 13:31 - CONCLUSION: Dilatation of the ventricles likely secondary to hydrocephalus. The ventricles do appear somewhat dilated out of proportion to the sulcal widening which can suggest normal pressure hydrocephalus. Evan Nascimento MD Chest X-Ray 08/27/162130 Signed Impressions: Service Date/Time: August 21:33 - CONCLUSION: No acute cardiopulmonary disease. Mary Lake MD Objective Remarks GENERAL: Well-developed well-nourished elderly male. Arouses to voice. Able to answer some questions. SKIN: . Abrasions noted on both anterior knees. Lower lip ecchymosis noted with dried blood. Cool and dry. HEAD: Atraumatic. Normocephalic. CARDIOVASCULAR: Regular rate and rhythm without murmurs, gallops, or rubs. RESPIRATORY: Clear to auscultation. Breath sounds equal bilaterally. No wheezes , rales, or rhonchi. GASTROINTESTINAL: Abdomen soft, non-tender, nondistended. No hepato-splenomegaly , or palpable masses. No guarding. MUSCULOSKELETAL: Extremities without clubbing, cyanosis, or edema. No joint tenderness, effusion, or edema noted. No calf tenderness. NEUROLOGICAL: Sedated. Able to move all 4 extremities. Able to follow commands. Urinary Catheter: No Vascular Central Line Catheter: No A/P Assessment and Plan 81-year-old patient with a past medical history significant for Parkinson's dementia who was brought into the hospital as a result of becoming increasingly agitated at his NICOLE who was Alexander acted by his psychologist for associated aggressiveness and psychosis. Per review of the medical record, patient has developed delusional thinking and visual hallucinations. He is also following multiple times in the past month. Patient has developed some involuntary jerking. Hospitalist services were consulted for medical management. 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 - Patient with h/o NUPUR using CPAP at home. CPAP ordered at night, possible relation of jerking to REM sleep. - B12 level 570 Dysphagia - Speech therapy swallow evaluation ordered, appreciate input. Possible aspiration. Hypertension - BP 141/82 today. - Requested only check blood pressure when sitting - Continue with antihypertensive regimen. - IV hydralazine PRN, with parameters - Monitor BP Dyslipidemia - Continue home statin Diabetes mellitus - Metformin on hold until better oral intake - Continue accuchecks and sliding scale - A1c pending Indirect Hyperbilirubinemia -labs indicate gilbert's syndrome - benign History of TIA -Continue Plavix NUPUR -CPAP ordered at night Vitamin D deficiency -Vitamin D supplementation Anemia -Mild, stable -Recheck CBC if indicated DVT prophylaxis -Encourage ambulation -Lovenox Discussed with nursing staff, Dr. Barrera and patient Gisselle StylesP Aug 31, 2016 10:44
--- NOTE | 2016-08-31 11:03 | HHI.PR ---
Review/Management Daily Summary 08/30 he is responding tostim, follows commands, moves limbs on request lower lip injuty mild myoclonus noted today eeg seen ct seen met encep with myoclonus avoid all marker shipments meds, agrressive hydration, nutrition and comfort/supportive care consider NPH eval/tx later on 08/31 more alert and some verbal reply but minimal follows some simple commands no myoclonus continue to hold marker shipments meds hydration and nutrition discussed with staff Subjective Subjective Comments No acute events reported Active Medications Current Medications Medications (Trade) Dose Ordered Sig/Kristyn Route Start Time Stop Time Status Last Admin (NS Flush) 2 ml UNSCH PRN IVF 08/27/16 21:45 (Sinemet 25-100 Mg) 1 tab ONCE PO 08/28/16 00:30 Hold 08/29/16 00:30 (Ativan Inj) 1 mg Q6H PRN IM 08/28/16 11:00 08/29/16 19:32 (Ativan Inj) 0.5 mg Q12H PRN IM 08/28/16 11:00 08/30/16 10:50 (Tylenol) 650 mg Q4H PRN PO 08/28/16 11:00 (Milk Of Magnesia Liq) 30 ml DAILY PRN PO 08/28/16 11:00 (Mag-Al Plus Susp Liq) 30 ml Q6H PRN PO 08/28/16 11:00 (Habitrol 21 Mg Patch.24 Hr) 1 patch DAILY T-DERMAL 08/29/16 09:00 (Desyrel) 50 mg HS PRN PO 08/28/16 11:00 (Lipitor) 10 mg HS PO 08/28/16 21:00 Hold 08/28/16 21:31 (Sinemet 25-100 Mg) 1 tab Q8HR PO 08/28/16 14:00 Hold 08/29/16 05:55 (Plavix) 75 mg DAILY PO 08/28/16 12:00 08/31/16 09:56 (Namenda) 5 mg DAILY PO 08/29/16 09:00 Hold 08/29/16 08:53 (Glucophage) 500 mg BIDPC PO 08/28/16 18:00 Hold 08/29/16 08:53 (Diovan) 160 mg DAILY PO 08/28/16 12:00 08/31/16 09:00 (Allbee C) 1 tab DAILY PO 08/29/16 09:00 08/31/16 09:56 (Vitamin D3) 2,000 units DAILY PO 08/29/16 09:00 08/31/16 09:59 (D50w (Vial) Inj) 25 ml UNSCH PRN IV PUSH 08/29/16 17:45 Glucagon 1 mg 1 mg UNSCH PRN OTHER 08/29/16 17:45 (NS 1000 ml Inj) 1,000 ml @ 75 mls/hr [id number] IV 08/30/16 10:00 08/30/16 22:31 (Apresoline Inj) 10 mg Q6H PRN IV PUSH 08/30/16 09:45 (Lovenox Inj) 40 mg Q24H SQ 08/30/16 12:15 08/30/16 12:15 Allergies Allergies Coded Allergies No Known Allergies (Unverified08/27/16) Exam I&O / VS 08/30/16 08/30/16 08/31/16 15:00 23:00 07:00 Intake Total 0 ml 0 ml Balance 0 ml 0 ml Intake Oral 0 ml 0 ml # Voids 2 4 Vital Signs Date Time Temp Pulse Resp B/P Pulse Ox O2 Delivery O2 Flow Rate FiO2 08/31/16 05:58 98.5 92 17 141/82 92 08/31/16 01:40 94 21 08/30/16 20:35 95 21 08/30/16 18:00 85 20 150/91 08/30/16 15:36 94 21 08/30/16 12:18 63 179/85 Maynor Garcia MD Aug 31, 2016 11:03
[2016-08-31] MEDS: ENOXAPARIN SODIUM 40 MG/0.4 ML SYRINGE SQ SCH (13:10)
[2016-08-31] MEDS: SODIUM CHLOR 0.9% 1000 ML INJ 1,000 ML IV SCH (13:15)
[2016-08-31 13:44] LABS: HEMOGLOBIN A1b 1.9 %; HEMOGLOBIN Ao 84.9 %; HEMOGLOBIN LA1C 1.8 %; HEMOGLOBIN P3 3.9 %
--- NOTE | 2016-08-31 14:09 | HHI.PYPN ---
Subjective Remarks Pt seen and discussed with staff. Pt was lethargic this morning, but is more alert this afternoon. He ate lunch with staff assistance and engaged more with staff. He reports that he is okay and asks when "when am I getting out of here? " but quickly derails into nonsensical rambling and tires quickly. He is in soft mitten restraint due to attempting to pull out IV Objective Alert: Yes [place]: Person Mood: Calm Affect: Blunted Memory Intact: Immediate (impaired), Recent (impaired), Remote (impaired) Hallucinations: Other (does not appear to internally stimulated) Delusions: No Delusion Type: Paranoid Suicidal: Ideation (none elicited) Homicidal: Ideation (none elicted) Insight/Judgment poor Vitals/IOs Vital Signs Date Time Temp Pulse Resp B/P Pulse Ox O2 Delivery O2 Flow Rate FiO2 08/31/16 05:58 98.5 92 17 141/82 92 08/31/16 01:40 21 08/28/16 07:30 Room Air Intake and Output 08/30/16 08/30/16 08/31/16 08:00 16:00 00:00 Intake Total 0 ml Balance 0 ml Assessment & Plan Problem List: (1) 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 Estimated LOS: days Justification for Cont. Inpt. complicating medical conditions Catrachita Mercedes MD Aug 31, 2016 14:09
[2016-08-31 17:30] VITALS: BP 161/83; PULSE 95; RESP 12; O2SAT 95
[2016-09-01] VITALS (7 sets, daily range): BP systolic 175–197; BP diastolic 80–105; PULSE 88–95; RESP 20; TEMP 98.7; O2SAT 94–98
[2016-09-01] MEDS: SODIUM CHLOR 0.9% 1000 ML INJ 1,000 ML IV SCH (02:12)
[2016-09-01] MEDS: INSULIN ASPART SUPPLEMENTAL SCALE SQ SCH ×4 (07:00→21:00)
[2016-09-01] MEDS: NICOTINE 21 MG/24 HR PATCH T-DERMAL SCH (09:00)
[2016-09-01] MEDS: VALSARTAN 160 MG TAB PO SCH (09:30)
[2016-09-01] MEDS: CLOPIDOGREL 75 MG TAB PO SCH (09:30)
[2016-09-01] MEDS: CHOLECALCIFEROL (VIT D3) 1000 UNIT TAB PO SCH (09:30)
[2016-09-01] MEDS: VITAMIN B COMPLEX/VIT C TAB PO SCH (09:30)
[2016-09-01] MEDS ORDERED: BISACODYL 10 MG SUPP RECTAL ONE (11:00)
--- NOTE | 2016-09-01 12:12 | HHI.PYPN ---
Subjective Remarks Seen today for psychiatric reevaluation along with nurse in charge Dion, patient is poorly cooperative, he is a very poor historian, confused, disoriented, however he seems to be more alert and awake that yesterday. He denies suicidal and homicidal ideation, he denies visual and auditory hallucinations. The patient or aggressive behavior reported or observed. Review of Systems Other No somatic complaints Objective Alert: Yes [place]: Person Mood: Calm Affect: Blunted Memory Intact: Immediate (impaired), Recent (impaired), Remote (impaired) Hallucinations: Other (does not appear to internally stimulated) Delusions: No Delusion Type: Paranoid Suicidal: Ideation (none elicited) Homicidal: Ideation (none elicted) Insight/Judgment Poor Vitals/IOs Vital Signs Date Time Temp Pulse Resp B/P Pulse Ox O2 Delivery O2 Flow Rate FiO2 09/01/16 05:14 88 20 197/100 09/01/16 04:00 94 21 08/31/16 05:58 98.5 08/28/16 07:30 Room Air Intake and Output 08/31/16 08/31/16 09/01/16 08:00 16:00 00:00 Intake Total 0 ml 1000 ml 0 ml Balance 0 ml 1000 ml 0 ml Assessment & Plan Problem List: (1) 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 ICD Code: F02.81 Assessment & Plan Estimated LOS: days Justification for Cont. Inpt. Patient is to continue psychiatric hospitalization for stabilization and safety Deejay Torres MD Sep 01, 2016 12:11
[2016-09-01] MEDS: ENOXAPARIN SODIUM 40 MG/0.4 ML SYRINGE SQ SCH (13:10)
[2016-09-01] MEDS: DOCUSATE SODIUM 50 MG/SENNA 8.6 MG TAB PO SCH (13:10)
--- NOTE | 2016-09-01 15:01 | HHI.PR ---
Subjective Remarks Follow-up on patient with Parkinson's dementia, hypertension, diabetes and myoclonus. Patient lying in bed comfortably. Pleasantly confused. Myoclonus significantly improved. Denies any shortness of breath, chest pain or nausea/ vomiting. Spoke to RN regarding patient status, patient has not had a BM since admission, also appetite has been poor with minimal PO intake. RN did state that patient used CPAP overnight. Has been tolerating PO medications. BP elevated today, requested to recheck. Objective Vitals Vital Signs Date Time Temp Pulse Resp B/P Pulse Ox O2 Delivery O2 Flow Rate FiO2 09/01/16 05:14 88 20 197/100 09/01/16 04:00 94 21 09/01/16 00:00 94 21 08/31/16 17:30 95 12 161/83 95 I/O 08/31/16 08/31/16 08/31/16 09/01/16 09/01/16 09/01/16 07:00 15:00 23:00 07:00 15:00 23:00 Intake Total 0 ml 1000 ml 0 ml 1639 ml 1000 ml Balance 0 ml 1000 ml 0 ml 1639 ml 1000 ml Intake Oral 0 ml 0 ml IV Total 1000 ml 1639 ml 1000 ml # Voids 4 2 2 2 Result Diagram: 08/29/16 0818 08/29/16 0818 Imaging Last Impressions Head CT 08/29/16 0000 Signed Impressions: Service Date/Time: Monday, August 29, 2016 13:31 - CONCLUSION: Dilatation of the ventricles likely secondary to hydrocephalus. The ventricles do appear somewhat dilated out of proportion to the sulcal widening which can suggest normal pressure hydrocephalus. Evan Nascimento MD Chest X-Ray 08/27/162130 Signed Impressions: Service Date/Time: August 21:33 - CONCLUSION: No acute cardiopulmonary disease. Mary Lake MD Objective Remarks GENERAL: Well-developed well-nourished elderly male. Arouses to voice. Able to answer some questions. SKIN: . Abrasions noted on both anterior knees. Lower lip ecchymosis noted with dried blood. Cool and dry. HEAD: Atraumatic. Normocephalic. CARDIOVASCULAR: Regular rate and rhythm without murmurs, gallops, or rubs. RESPIRATORY: Clear to auscultation. Breath sounds equal bilaterally. No wheezes , rales, or rhonchi. GASTROINTESTINAL: Abdomen soft, non-tender, nondistended. No hepato-splenomegaly , or palpable masses. No guarding. MUSCULOSKELETAL: Extremities without clubbing, cyanosis, or edema. No joint tenderness, effusion, or edema noted. No calf tenderness. NEUROLOGICAL: Sedated. Able to move all 4 extremities. Able to follow commands. A/P Assessment and Plan 81-year-old patient with a past medical history significant for Parkinson's dementia who was brought into the hospital as a result of becoming increasingly agitated at his NICOLE who was Alexander acted by his psychologist for associated aggressiveness and psychosis. Per review of the medical record, patient has developed delusional thinking and visual hallucinations. He is also following multiple times in the past month. Patient has developed some involuntary jerking. Hospitalist services were consulted for medical management. Dementia with behavioral disturbance - Management per psychiatric team Myoclonic jerking - Significantly improved today. - Possibly due to Parkinson's/Lewy body dementia - Neurology following, order to hold all KNIFEMAN medications. 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 - Patient with h/o NUPUR using CPAP at home. CPAP ordered at night, possible relation of jerking to REM sleep. - B12 level 570 Constipation - No BM documented since admission. - Dulcolax suppository x 1. Scheduled docusate/senna. Milk of magnesium PRN. Dysphagia - Speech therapy swallow evaluation performed yesterday, pureed honey thickened liquids. - Encourage PO intake. Hypertension - BP elevated - Requested only check blood pressure when sitting - Continue with antihypertensive regimen. - IV hydralazine PRN, with parameters - Monitor BP Dyslipidemia - Continue home statin Diabetes mellitus - Metformin on hold. Blood sugars controlled. - Continue accuchecks and sliding scale - A1c 5.9. 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 Vitamin D deficiency -Vitamin D supplementation Anemia -Mild, stable -Recheck CBC if indicated DVT prophylaxis -Encourage ambulation -Lovenox Discussed with nursing staff, Dr. Barrera and patient Gisselle Styles DANISH Sep 01, 2016 15:01
[2016-09-01] MEDS: hydrALAZINE HCL 20 MG/ML VIAL IV PUSH PRN (15:19)
[2016-09-01 21:11] LABS: BICARBONATE 24.4 MEQ/L (21.0-32.0); POTASSIUM 3.8 MEQ/L (3.5-5.1)
[2016-09-02] MEDS: hydrALAZINE HCL 20 MG/ML VIAL IV PUSH PRN (05:08)
[2016-09-02 05:36] VITALS: BP 148/69; PULSE 87; RESP 17; TEMP 98
[2016-09-02] MEDS: INSULIN ASPART SUPPLEMENTAL SCALE SQ SCH ×2 (06:32→11:00)
[2016-09-02] MEDS: VALSARTAN 160 MG TAB PO SCH (08:12)
[2016-09-02] MEDS: CLOPIDOGREL 75 MG TAB PO SCH (08:12)
[2016-09-02] MEDS: VITAMIN B COMPLEX/VIT C TAB PO SCH (08:13)
[2016-09-02] MEDS: CHOLECALCIFEROL (VIT D3) 1000 UNIT TAB PO SCH (08:13)
[2016-09-02] MEDS: DOCUSATE SODIUM 50 MG/SENNA 8.6 MG TAB PO SCH (08:13)
[2016-09-02] MEDS: NICOTINE 21 MG/24 HR PATCH T-DERMAL SCH (09:00)
[2016-09-02] MEDS ORDERED: TRAZ50TA12 PO (09:08)
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
--- NOTE | 2016-09-02 10:05 | HHI.PR ---
Subjective Remarks Follow-up on patient with Parkinson's dementia, hypertension, diabetes and myoclonus. Patient seen and examined today with Dr. Palmer. Speech therapy at bedside, supposedly patient had a difficult time swallowing during evaluation, modified barium swallow ordered and performed, with recommendations for pureed honey thickened liquids. Patient is alert today. No new complaints. Plan to discharge to [facility] today. Objective Vitals Vital Signs Date Time Temp Pulse Resp B/P Pulse Ox O2 Delivery O2 Flow Rate FiO2 09/02/16 05:36 98.0 87 17 148/69 09/02/16 02:15 21.0 09/02/16 01:25 Full Face Mask 21.0 09/01/16 22:40 Full Face Mask 21.0 09/01/16 18:00 98.7 95 185/80 98 09/01/16 14:59 175/105 I/O 09/01/16 09/01/16 09/01/16 09/02/16 09/02/16 09/02/16 06:59 14:59 22:59 06:59 14:59 22:59 Intake Total 1639 ml 1000 ml 420 ml 40 ml 90 ml Output Total 1 ml Balance 1639 ml 1000 ml 419 ml 40 ml 90 ml Intake Oral 420 ml 40 ml 90 ml IV Total 1639 ml 1000 ml Output Stool Total 1 ml # Voids 2 2 4 # Bowel Movements 1 Result Diagram: 08/29/16 0818 09/01/16 1949 Imaging Last Impressions Head CT 08/29/16 0000 Signed Impressions: Service Date/Time: Monday, August 29, 2016 13:31 - CONCLUSION: Dilatation of the ventricles likely secondary to hydrocephalus. The ventricles do appear somewhat dilated out of proportion to the sulcal widening which can suggest normal pressure hydrocephalus. Evan Nascimento MD Chest X-Ray 08/27/162130 Signed Impressions: Service Date/Time: August 21:33 - CONCLUSION: No acute cardiopulmonary disease. Mary Lake MD Objective Remarks GENERAL: Well-developed well-nourished elderly male. Arouses to voice. Able to answer some questions. SKIN: . Abrasions noted on both anterior knees. Lower lip ecchymosis noted with dried blood. Cool and dry. HEAD: Atraumatic. Normocephalic. CARDIOVASCULAR: Regular rate and rhythm without murmurs, gallops, or rubs. RESPIRATORY: Clear to auscultation. Breath sounds equal bilaterally. No wheezes , rales, or rhonchi. GASTROINTESTINAL: Abdomen soft, non-tender, nondistended. No hepato-splenomegaly , or palpable masses. No guarding. MUSCULOSKELETAL: Extremities without clubbing, cyanosis, or edema. No joint tenderness, effusion, or edema noted. No calf tenderness. NEUROLOGICAL: Sedated. Able to move all 4 extremities. Able to follow commands. Urinary Catheter: No Vascular Central Line Catheter: No A/P Assessment and Plan 81-year-old patient with a past medical history significant for Parkinson's dementia who was brought into the hospital as a result of becoming increasingly agitated at his NICOLE who was Alexander acted by his psychologist for associated aggressiveness and psychosis. Per review of the medical record, patient has developed delusional thinking and visual hallucinations. He is also following multiple times in the past month. Patient has developed some involuntary jerking. Hospitalist services were consulted for medical management. Dementia with behavioral disturbance - Management per psychiatric team Myoclonic jerking, improved. - Possibly due to Parkinson's/Lewy body dementia - CT head report reviewed, dilatation of the ventricles likely secondary to hydrocephalus, possibly due to normal pressure hydrocephalus. - Patient with h/o NUPUR using CPAP at home. CPAP ordered at night, possible relation of jerking to REM sleep. - B12 level 570 Constipation - Dulcolax suppository x 1 yesterday 09/01. Scheduled docusate/senna. Milk of magnesium PRN. - BM documented for yesterday 09/01. Dysphagia - Speech therapy performed modified barium swallow, continue with prior recommendations for pureed honey thickened liquids. - Encourage PO intake. Hypertension - BP more controlled. May be related to hold on Sinemet, although per neurology note he desires Sinemet to be held. Recommending follow up in [address] Garcia outpatient. - Continue with antihypertensive regimen. - Monitor BP Dyslipidemia - Continue home statin Diabetes mellitus - Blood sugars controlled. - Continue accuchecks and sliding scale - A1c 5.9. 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 Vitamin D deficiency -Vitamin D supplementation Anemia -Mild, stable DVT prophylaxis -Encourage ambulation -Lovenox Discussed with nursing staff, Dr. Palmer and patient Written by Gisselle Styles, acting as scribe for Dr. Palmer on 09/02/16 at 1130. This note was transcribed by scribe [DANISH Pendleton]. I, Dr. Cleo Palmer personally performed the history, physical exam, and medical decision making; and confirmed the accuracy of the information in the transcribed note. Authenticated by Dr. Cleo Palmer on 09/02/16 at 1135. Discharge Planning Discharge today to [facility]. Gisselle Styles Sep 02, 2016 10:05 Cleo Palmer MD Sep 02, 2016 16:54
--- NOTE | 2016-09-02 10:48 | HHI.PR ---
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 hydration and nutrition discussed with staff 09/02 he is the most alert i have ever seen mumbles some words rarely follows simple commands mittens gen weakness would continue to hold 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 meds such as sinemet, namenda, antipsychotics ok to go to rehab care Subjective Subjective Comments No acute events reported No headache No chest pain No dyspnea Active Medications Current Medications Medications (Trade) Dose Ordered Sig/Kristyn Route Start Time Stop Time Status Last Admin (NS Flush) 2 ml UNSCH PRN IVF 08/27/16 21:45 (Sinemet 25-100 Mg) 1 tab ONCE PO 08/28/16 00:30 08/29/16 00:30 (Ativan Inj) 1 mg Q6H PRN IM 08/28/16 11:00 08/29/16 19:32 (Ativan Inj) 0.5 mg Q12H PRN IM 08/28/16 11:00 08/30/16 10:50 (Tylenol) 650 mg Q4H PRN PO 08/28/16 11:00 (Milk Of Magnesia Liq) 30 ml DAILY PRN PO 08/28/16 11:00 (Mag-Al Plus Susp Liq) 30 ml Q6H PRN PO 08/28/16 11:00 (Habitrol 21 Mg Patch.24 Hr) 1 patch DAILY T-DERMAL 08/29/16 09:00 (Desyrel) 50 mg HS PRN PO 08/28/16 11:00 (Lipitor) 10 mg HS PO 08/28/16 21:00 Hold 08/28/16 21:31 (Sinemet 25-100 Mg) 1 tab Q8HR PO 08/28/16 14:00 08/29/16 05:55 (Plavix) 75 mg DAILY PO 08/28/16 12:00 09/02/16 08:12 (Namenda) 5 mg DAILY PO 08/29/16 09:00 Hold 08/29/16 08:53 (Diovan) 160 mg DAILY PO 08/28/16 12:00 09/02/16 08:12 (Allbee C) 1 tab DAILY PO 08/29/16 09:00 09/02/16 08:13 (Vitamin D3) 2,000 units DAILY PO 08/29/16 09:00 09/02/16 08:13 (D50w (Vial) Inj) 25 ml UNSCH PRN IV PUSH 08/29/16 17:45 (Glucagon Inj) 1 mg UNSCH PRN OTHER 08/29/16 17:45 (Apresoline Inj) 10 mg Q6H PRN IV PUSH 08/30/16 09:45 09/02/16 05:08 (Lovenox Inj) 40 mg Q24H SQ 08/30/16 12:15 09/01/16 13:10 (Eve-Colace) 2 tab DAILY PO 09/01/16 11:00 09/02/16 08:13 Allergies Allergies Coded Allergies No Known Allergies (Unverified08/27/16) Exam I&O / VS 09/01/16 09/01/16 09/02/16 15:00 23:00 07:00 Intake Total 1000 ml 420 ml 40 ml Output Total 1 ml Balance 1000 ml 419 ml 40 ml Intake Oral 420 ml 40 ml IV Total 1000 ml Output Stool Total 1 ml # Voids 2 4 # Bowel Movements 1 Vital Signs Date Time Temp Pulse Resp B/P Pulse Ox O2 Delivery O2 Flow Rate FiO2 09/02/16 05:36 98.0 87 17 148/69 09/01/16 18:00 98.7 95 185/80 98 09/01/16 14:59 175/105 Objective Micro and Labs Laboratory Tests Test 09/01/16 19:49 Sodium Level 142 Potassium Level 3.8 Chloride Level 108 Carbon Dioxide Level 24.4 Anion Gap 10 Blood Urea Nitrogen 14 Creatinine 0.79 Estimat Glomerular Filtration 94 Rate Random Glucose 134 Calcium Level 8.4 Maynor Garcia MD Sep 02, 2016 10:48
[2016-09-02] MEDS: ENOXAPARIN SODIUM 40 MG/0.4 ML SYRINGE SQ SCH (12:15)
--- NOTE | 2016-09-02 13:17 | RADRPT ---
EXAM DATE/TIME: 09/02/2016 00:00 [place] COMPARISON: No previous studies available for comparison. INDICATIONS : Evaluate for aspiration. FLUORO TIME: 3.2 minutes IMAGE COUNT: 0 CONTRAST: Dose as prescribed by speech pathologist. MEDICAL HISTORY : Seizures.Stroke. Parkinsons. Hypertension. SURGICAL HISTORY : None. ENCOUNTER: Subsequent ACUITY: 1 week PAIN SCORE: Non-responsive. LOCATION: Esophagus. FINDINGS: A modified barium swallow was performed with speech pathology. Patient was given a variety of liquids to swallow. There is a poor oral preparatory phase with weak swallowing. There was vallecular pooling with no def inite aspiration. For a full detailed report, see report by the speech pathologist. CONCLUSION: Abnormal modified barium swallow. Uriel Wheat MD on September 02, 2016 at 13:14 Board Certified Radiologist. This report was verified electronically.
--- NOTE | 2016-09-08 13:01 | HHI.PYPN ---
Subjective Remarks Patient note for August 30, 2016. Patient seen and appears to be lethargic, disoriented and even somnolent. He continues to have problems with working motions and neurology has been consulted. 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 Will follow neurology's lead in medication management. Justification for Cont. Inpt. Likely to decompensate at lower level of care. Chance Adler MD September 08, 2016 13:01
== END 2016-09-02 15:30 | DRG 56 ==
LOC: NEPD 20:59 → NEDA 08-28 10:48 → H250 08-28 11:52 → H4EA 08-29 12:30
PROVIDERS: ADMIT Psychiatry & Neurology Psychiatry; ATTEND Psychiatry & Neurology Psychiatry
DX: G20 Parkinson's disease (principal); G93.41 Metabolic encephalopathy; G91.9 Hydrocephalus, unspecified; F02.81 Dementia in other diseases classified elsewhere, unspecified severity, with behavioral disturbance; E87.5 Hyperkalemia; E55.9 Vitamin D deficiency, unspecified; R13.10 Dysphagia, unspecified; E11.9 Type 2 diabetes mellitus without complications; I10 Essential (primary) hypertension; D64.9 Anemia, unspecified; R44.1 Visual hallucinations; M25.562 Pain in left knee; E78.5 Hyperlipidemia, unspecified; G47.33 Obstructive sleep apnea (adult) (pediatric); E80.4 Gilbert syndrome; S00.531A Contusion of lip, initial encounter; G25.3 Myoclonus; K59.00 Constipation, unspecified; Z79.84 Long term (current) use of oral hypoglycemic drugs; Z86.73 Personal history of transient ischemic attack (TIA), and cerebral infarction without residual deficits; Z91.81 History of falling; X58.XXXA Exposure to other specified factors, initial encounter
CPT/HCPCS: 70450; 71010; 74230; 80048; 80053; 80061; 80307; 81001; 82140; 82247; 82248; 82306; 82607; 82948; 83036; 84132; 84436; 84443; 85025; 94002; 94003; 95819; 96361; 96374; J0360; J1650; J2060; J7030; J7040